=== PATIENT | male | born 1950 | race Caucasian/White ===

== ENCOUNTER → 2016-07-06 | Outpatient (CLI) | payer BC ==
[~2016-07-06] MED LIST: BACT800T5 PO; COLA100C PO; HYDR12.57 PO; IBUP800T23 PO; MIRA25TA PO; OXYB5TAB10 PO; OXYC1TAB63 PO; PERC10TA27 PO
[2016-07-06 10:39] LABS: BASOPHIL # 0.1 TH/MM3 (0-0.2); BASOPHIL % 1.1 % (0.0-2.0); EOSINOPHIL # 0.2 TH/MM3 (0-0.4); HEMATOCRIT 43.5 % (39.0-51.0); HEMO FLAGS DIFF FINAL; LYMPH % 20.2 % (9.0-44.0); MEAN CELL VOLUME 91.2 FL (80.0-100.0); MEAN CORPUSCULAR HEMOGLOBIN 31.4 PG (27.0-34.0); MEAN CORPUSCULAR HGB CONC 34.5 % (32.0-36.0); MONO % 11.3 % (0.0-8.0); NEUT % 62.4 % (16.0-70.0); PLATELET COUNT 246 TH/MM3 (150-450); RED BLOOD COUNT 4.77 MIL/MM3 (4.50-5.90); WHITE BLOOD COUNT 4.8 TH/MM3 (4.0-11.0)
[2016-07-06 10:51] LABS: APTT (PATIENT) 25.2 SEC (24.3-30.1); INTERNATIONAL NORMALIZED RATIO 0.9 RATIO; PROTHROMBIN TIME - PATIENT 10.4 SEC (9.8-11.6)
[2016-07-06 10:56] LABS: BACTERIA, URINE RARE /hpf; BLOOD, URINE NEG (NEG); COMMENT (UR) CULTURE INDICATED; CULTURE IF INDICATED CULTURE INDICATED; GLUCOSE,URINE NEG (NEG); KETONE, URINE NEG (NEG); MUCUS URINE FEW /lpf (OCC); SQUAMOUS EPITHELIAL CELL URINE <1 /hpf (0-5); URINE COLOR YELLOW (YELLW/STRAW)
[2016-07-06 10:57] LABS: NITRITE,URINE POS (NEG)
[2016-07-06 12:49] LABS: ANION GAP 6 MEQ/L (5-15); AST (GOT) 26 U/L (15-37); BICARBONATE 25.3 MEQ/L (21.0-32.0); BLOOD UREA NITROGEN 14 MG/DL (7-18); CHLORIDE 105 MEQ/L (98-107); GLOMERULAR FILTRATION RATE 87 ML/MIN (>89); GLUCOSE,FASTING 96 MG/DL (74-99); SODIUM (NA) 136 MEQ/L (136-145)
[2016-07-06 12:50] LABS: ALT (GPT) 37 U/L (12-78)
[2016-07-06 12:53] LABS: ALKALINE PHOSPHATASE 76 U/L (45-117); TOTAL BILIRUBIN ADULT 1.1 MG/DL (0.2-1.0)
--- NOTE | 2016-07-07 12:09 | EKG ---
Date Performed: 07/06/2016 Time Performed: 09:54:15 PTAGE: 65 years EKG: Sinus rhythm POSSIBLE RIGHT VENTRICULAR CONDUCTION DELAY BORDERLINE ECG Compared to prior tracing no significant change DOCTOR: Mauro Maher Interpretating Date/Time 07/07/2016 12:08:01
== END ==
LOC: CPRE 09:34
PROVIDERS: ATTEND Urology
DX: Z01.810 Encounter for preprocedural cardiovascular examination (principal); Z01.812 Encounter for preprocedural laboratory examination; N36.0 Urethral fistula; R94.31 Abnormal electrocardiogram [ECG] [EKG]; R82.90 Unspecified abnormal findings in urine
CPT/HCPCS: 36415; 80053; 81001; 85025; 85610; 85730; 87086; 93005

== ENCOUNTER 2016-07-12 05:49 | Inpatient (IN) | payer BC ==
[~2016-07-12] VITALS: Ht 188 cm; Wt 87.0 kg
[~2016-07-12 05:49] MED LIST changes: -BACT800T5 PO; -COLA100C PO; -MIRA25TA PO; -OXYC1TAB63 PO; -PERC10TA27 PO
[2016-07-12] MEDS ORDERED: AMPICILLIN 1 GM/NS 100 ML IV SCH ×2 (06:15)
[2016-07-12] MEDS ORDERED: INSULIN HUMAN REGULAR 1,000 UNITS/10 ML VIAL SQ PRN (06:30)
[2016-07-12] MEDS ORDERED: METOPROLOL TARTRATE 25 MG TAB PO PRN (06:30)
[2016-07-12] MEDS ORDERED: CHLORHEXIDINE GLUCONATE 2 % 1 PACK (2 CLOTHS) TOPICAL PRN (06:30)
[2016-07-12] MEDS ORDERED: SODIUM CHLORID 0.9% 500 ML IV PRN (06:30)
[2016-07-12] MEDS ORDERED: POVIDONE IODINE 5% (ANTISEPSIS KIT) 4 APPLICATIONS EACH NARE PRN (06:30)
[2016-07-12 06:43] VITALS: BP 126/91; PULSE 80; RESP 20; TEMP 98; O2SAT 93
[2016-07-12] MEDS: LACTATED RINGER'S 1000 ML IV PRN ×2 (06:50→19:45)
[2016-07-12] MEDS: GENTAMICIN INJ 240 MG in SODIUM CHLORIDE 0.9% INJ 100 ML IV SCH ×3 (07:01→20:52)
[2016-07-12] MEDS ORDERED: POVIDONE IODINE 10% OINT 30 GM TUBE ONE (07:07)
[2016-07-12] MEDS ORDERED: LIDOCAINE 1%/EPINEPHrine 1:100,000 SOLN 50 ML VIAL ONE ×2 (07:08→07:09)
[2016-07-12] MEDS ORDERED: fentaNYL CITRATE 250 MCG/5 ML AMP ONE ×3 (07:50→15:07)
[2016-07-12] MEDS ORDERED: ACETAMINOPHEN 1000 MG/100 ML VIAL IV ONE (07:50)
[2016-07-12] MEDS ORDERED: HYDROmorphone HCL PF 2 MG/ML VIAL ONE (07:51)
[2016-07-12] MEDS ORDERED: SUGAMMADEX SODIUM 200 MG/2 ML VIAL IV PUSH ONE ×2 (07:51)
[2016-07-12] MEDS ORDERED: AMPICILLIN 1 GM/NS 100 ML IV ONE ×4 (11:45→13:45)
[2016-07-12] MEDS ORDERED: PROPOFOL 200 MG/20 ML AMP IV ONE (11:49)
[2016-07-12] MEDS ORDERED: ONDANSETRON HCL 4 MG/2 ML VIAL IV PUSH ONE (11:50)
[2016-07-12] MEDS ORDERED: ePHEDrine/NS 25 MG/5 ML SYR IV ONE (11:50)
[2016-07-12] MEDS ORDERED: NORMOSOL R INJ 3,000 ML IV ONE (11:51)
[2016-07-12] MEDS ORDERED: SODIUM CHLORID 0.9% 500 ML INJ 500 ML IV ONE (11:51)
[2016-07-12] MEDS ORDERED: LACTATED RINGER'S 1000 ML INJ 1,000 ML IV ONE (11:51)
[2016-07-12] MEDS ORDERED: HYOSCYAMINE 0.125 MG TAB PO PRN (14:30)
[2016-07-12] MEDS ORDERED: AMPICILLIN 500 MG VIAL IV PUSH SCH (14:30)
[2016-07-12] MEDS ORDERED: ONDANSETRON HCL 4 MG/2 ML VIAL IV PUSH PRN (14:30)
--- NOTE | 2016-07-12 14:55 | PD.OP ---
Operative Report Date of Surgery: Jul 12, 2016 Preoperative Diagnosis: Rectourethral fistula Postoperative Diagnosis: Same Procedure: Repair and excision of rectourethral fistula; flexible cystoscopy; Collier catheter insertion over a wire Anesthesia: ANDRES Surgeon: Latrell Killian Furniture Upholstery Mechanic(s): Dr. 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 Patient had a diagnosis of rectal cancer who underwent APR in the past followed by external beam radiation therapy. A retrograde urethrogram was performed in the past as well as an MRI demonstrating a rectourethral fistula. He underwent cystoscopy and suprapubic tube placement in the past. He was admitted today to undergo repair as a rectourethral fistula. Risk and benefits were discussed including: Urinary incontinence, recurrence of fistula: Urethral stricture disease, infection. He was willing to proceed. Patient was brought to the operating identified myself as Neymar Rivas. He's placed in the exaggerated high lithotomy position, prepped and draped in usual sterile fashion , received preprocedure antibiotics, and general endotracheal tube anesthesia was admitted. All joints were appropriately padded. His perineum was blocked backward on a beanbag and a gel pad was placed. Sequential compression devices were placed on lower extremities. His perineum was shaved and prepped and draped in usual sterile fashion. An 18 Cypriot Collier catheter was inserted into the penis. A midline perineal incision was made using the 15 blade to just above the anal verge and beginning below the scrotum. Subcutaneous tissues were taken with the Bovie cautery down to the bulbospongiosus muscle. Chambers Retractor was then placed in position. Bulbospongiosus muscle was then grasped in the midline and split and exposed the underlying urethra. Retraction was deepened, and further dissection continued along the proximal urethra. Fibrosis and scarring was identified in this region approaching the area of the prostatic urethra. Using the tenotomy scissors, further dissection proceeded, and rectal tissue was identified. This was adherent to the right lateral aspect of the urethra and an enterotomy was made into the rectal tissue. Dissection continued along the lateral aspect of the urethra to separate the adherent rectal tissue from this area with a fistula was present. Once the rectum was freed from the wall of the urethra, a large defect in the urethra was identified on the right side. A little calcification was also identified and removed. The rectum was closed with interrupted 2-0 Vicryl sutures. A double layered closure was performed. Attention was then directed to the right lateral aspect of the urethral side. This defect was approximately 3 cm in length. It ran along the right lateral sidewall and then extended anteriorly. Decision was made to free up the entire urethra circumferentially. This was done with tenotomy scissors and a vessel loop was used to help with retraction. Once the entire urethra was free, this allowed better visualization of the defect on the right lateral urethra. Decision was made to attempt a primary closure of this region as placing a graft in this area would be very difficult. Interrupted 4-0 Vicryl sutures were used to close the defect in the urethra. The Collier catheter was then removed at this point and attempt was made to irrigate through the urethra leaving the Collier in at the distal aspect of the glans to observe for any leakage. Some leakage was noted along the anterior surface of the urethra and this was closed with interrupted 4-0 Vicryl sutures. Further testing demonstrating this to be watertight. Flexible cystoscopy was then performed and near the area of the bladder neck a suture was identified within the urethra. Using the scissors this suture was then cut, and the flexible cystoscope was passed into the bladder. A 0.35 sensor wire was passed through the scope into the bladder. A 18 Cypriot viejas tip catheter was passed over the wire leaving the Collier in good position. The 22 Cypriot suprapubic tube was also replaced at this time. With both tubes in good position, decision was then made to close. A 70 Cypriot fenestrated drain was left in the wound through a perineal incision. Running 2- 0 Vicryl sutures were then used to close the bulbospongiosus muscle as well as the dartos fascia in 2 running layers. The skin was then closed with ana rosa. The patient was then awoken and transferred to recovery room in stable condition. Latrell Killian DO Jul 12, 2016 14:55
[2016-07-12] MEDS ORDERED: MIDAZOLAM HCL 2 MG/2 ML VIAL ONE (15:07)
[2016-07-12] MEDS ORDERED: HYDROmorphone HCL PCA 6 MG/30 ML IV ONE (15:32)
[2016-07-12 15:37] LABS: HEMATOCRIT 38.6 % (39.0-51.0); MEAN CELL VOLUME 91.9 FL (80.0-100.0); MEAN CORPUSCULAR HEMOGLOBIN 31.5 PG (27.0-34.0); MEAN CORPUSCULAR HGB CONC 34.3 % (32.0-36.0); PLATELET COUNT 196 TH/MM3 (150-450); RED CELL DISTRIBUTION WIDTH 13.6 % (11.6-17.2); REVIEW FLAG FINAL; WHITE BLOOD COUNT 6.3 TH/MM3 (4.0-11.0)
[2016-07-12] MEDS: HYDROmorphone HCL PCA 6 MG/30 ML IV SCH (15:45)
[2016-07-12] MEDS: SODIUM CHLOR 0.45% 1000 ML INJ 1,000 ML IV SCH (15:54)
[2016-07-12 16:00] LABS: BICARBONATE 28.3 MEQ/L (21.0-32.0); POTASSIUM 3.9 MEQ/L (3.5-5.1)
[2016-07-12] MEDS ORDERED: DO NOT ADM ANY ANTICOAGULANT DRUGS PRN (16:15)
[2016-07-12] MEDS ORDERED: NALOXONE HCL 0.4 MG/ML AMP IV PRN (16:15)
[2016-07-12] MEDS ORDERED: diphenhydrAMINE HCL 50 MG/ML VIAL IV PUSH PRN (16:15)
[2016-07-12 20:00] VITALS: BP 121/74; PULSE 65; RESP 18; TEMP 96.7; O2SAT 95
[2016-07-12] MEDS: AMPICILLIN 500 MG/NS 50 ML IV SCH ×2 (21:16)
[2016-07-13] VITALS (8 sets, daily range): BP systolic 99–125; BP diastolic 57–72; PULSE 65–90; RESP 16–20; TEMP 96.9–100.6; O2SAT 93–97
[2016-07-13] MEDS: AMPICILLIN 500 MG/NS 50 ML IV SCH ×8 (02:38→20:11)
[2016-07-13] MEDS: PANTOPRAZOLE SODIUM 40 MG VIAL IV PUSH SCH ×3 (04:00→14:36)
[2016-07-13] MEDS: PCA - TOTAL MG DILAUDID DELIVERED PER SHIFT SCH ×3 (05:36→22:00)
[2016-07-13 05:57] LABS: HEMATOCRIT 36.9 % (39.0-51.0); MEAN CELL VOLUME 93.3 FL (80.0-100.0); MEAN CORPUSCULAR HEMOGLOBIN 30.9 PG (27.0-34.0); MEAN CORPUSCULAR HGB CONC 33.1 % (32.0-36.0); PLATELET COUNT 172 TH/MM3 (150-450); RED BLOOD COUNT 3.96 MIL/MM3 (4.50-5.90); RED CELL DISTRIBUTION WIDTH 13.9 % (11.6-17.2); REVIEW FLAG FINAL; WHITE BLOOD COUNT 7.1 TH/MM3 (4.0-11.0)
[2016-07-13 06:28] LABS: BICARBONATE 28.2 MEQ/L (21.0-32.0); POTASSIUM 3.8 MEQ/L (3.5-5.1)
[2016-07-13 06:41] LABS: CALCIUM-PROTEIN CORRECTED 8.1 MG/DL (8.5-10.1)
[2016-07-13] MEDS: HYDROCHLOROTHIAZIDE 12.5 MG CAP PO SCH (09:18)
[2016-07-13] MEDS: SODIUM CHLOR 0.45% 1000 ML INJ 1,000 ML IV SCH ×3 (09:19→14:36)
--- NOTE | 2016-07-13 10:26 | HHI.PR ---
Subjective Patient symptoms today Pt seen and examined. Feels well. Some pain but controlled. Objective Vital Signs Vital Signs Date Time Temp Pulse Resp B/P Pulse Ox O2 Delivery O2 Flow Rate FiO2 07/13/16 08:00 98.4 78 16 99/57 95 07/13/16 07:49 96 21 07/13/16 05:36 16 07/13/16 05:02 96.9 67 16 116/68 96 07/13/16 00:00 97.1 65 18 106/67 93 07/12/16 20:00 96.7 65 18 121/74 95 07/12/16 16:30 97.4 65 16 132/69 96 Nasal Cannula 2 07/12/16 16:15 63 14 111/57 95 07/12/16 16:00 62 12 110/60 96 07/12/16 15:45 64 12 117/62 97 07/12/16 15:45 12 07/12/16 15:30 60 12 129/68 97 07/12/16 15:15 57 12 132/74 98 Nasal Cannula 2 07/12/16 15:00 97.4 66 14 126/74 97 Nasal Cannula 2 Intake & Output 07/13/16 07/13/16 06:59 18:59 Intake Total 1754 ml Output Total 1700 ml 520 ml Balance 54 ml -520 ml Intake Oral 380 ml IV Total 1374 ml Output Urine Total 1050 ml 300 ml Stool Total 0 ml Drainage Total 650 ml 220 ml Result Diagram: 07/13/1643607/13/16436 Objective Remarks Abd:soft,nt,nd Dressing intact Collier and SP tube with clear urine ERIBERTO: blood tinged Ext: neg C/C/E Medications and IVs Current Medications Medications (Trade) Dose Ordered Sig/Enmanuel Route Start Time Stop Time Status Last Admin Lactated Ringer's 1,000 ml @ 30 mls/hr Q24H PRN IV 07/12/16 06:30 07/15/16 06:29 07/12/16 06:50 (NS 500 ml Inj) 500 ml @ 30 mls/hr [id number] PRN IV 07/12/16 06:30 07/15/16 06:29 (Zofran Inj) 4 mg Q6HR PRN IV PUSH 07/12/16 14:30 Acetaminophen 650 mg 650 mg Q6H PRN PO 07/12/16 14:30 (1/2 NS 1000 ml Inj) 1,000 ml @ 125 mls/hr Q8H IV 07/12/16 16:00 07/13/16 09:19 (Microzide) 12.5 mg DAILY PO 07/13/16 09:00 07/13/16 09:18 (Levsin) 0.25 mg Q4H PRN PO 07/12/16 14:30 Pantoprazole Sodium 40 mg 40 mg Q12H IV PUSH 07/12/16 16:00 07/13/16 05:37 (Ampicillin Inj/ NS Inj) 50 ml @ 200 mls/hr Q6H IV 07/12/16 20:00 07/13/16 09:19 (Dilaudid WHEEL MOLDER Inj) 6 mg UNSCH IV 07/12/16 16:15 07/12/16 15:45 WHEEL MOLDER Dosage Infused (Pha) 1 Q8HR .XX 07/12/16 22:00 07/13/16 05:36 (Narcan Inj) 0.4 mg UNSCH PRN IV 07/12/16 16:15 (Benadryl Inj) 25 mg Q6H PRN IV PUSH 07/12/16 16:15 Miscellaneous Information ALL NURSING DEPARTME... UNSCH PRN .XX 07/12/16 16:15 07/13/16 16:14 Assessment and Plan Assessment and Plan Stable POD#1 s/p repair of rectal urethral fistula Reg Diet OOB/Ambulate Latrell Killian DO Jul 13, 2016 10:26
[2016-07-13] MEDS: HYDROmorphone HCL PCA 6 MG/30 ML IV SCH (12:09)
[2016-07-13] MEDS: ACETAMINOPHEN 650 MG/20.3 ML UDC PO PRN (17:09)
[2016-07-14] VITALS (7 sets, daily range): BP systolic 106–135; BP diastolic 62–77; PULSE 64–88; RESP 14–20; TEMP 97.2–101.1; O2SAT 91–95
[2016-07-14] MEDS: SODIUM CHLOR 0.45% 1000 ML INJ 1,000 ML IV SCH ×4 (01:10→21:29)
[2016-07-14] MEDS: ACETAMINOPHEN 650 MG/20.3 ML UDC PO PRN (03:58)
[2016-07-14] MEDS: PANTOPRAZOLE SODIUM 40 MG VIAL IV PUSH SCH ×2 (03:59→17:25)
[2016-07-14] MEDS: AMPICILLIN 500 MG/NS 50 ML IV SCH ×6 (04:01→13:22)
[2016-07-14] MEDS: HYDROmorphone HCL PCA 6 MG/30 ML IV SCH (04:42)
[2016-07-14] MEDS: PCA - TOTAL MG DILAUDID DELIVERED PER SHIFT SCH (06:00)
[2016-07-14] MEDS: HYDROCHLOROTHIAZIDE 12.5 MG CAP PO SCH (09:22)
--- NOTE | 2016-07-14 09:59 | HHI.PR ---
Subjective Patient symptoms today Pt seen and examined. Feels well. Fever last PM to 101. Objective Vital Signs Vital Signs Date Time Temp Pulse Resp B/P Pulse Ox O2 Delivery O2 Flow Rate FiO2 07/14/16 08:00 98.0 68 14 106/62 91 07/14/16 06:19 17 07/14/16 06:00 17 07/14/16 04:42 16 07/14/16 04:00 101.1 88 20 126/71 93 07/14/16 00:00 100.2 78 20 127/75 95 07/13/16 22:00 16 07/13/16 20:05 95 21 07/13/16 20:00 99.6 82 20 103/67 93 07/13/16 16:00 100.6 87 16 112/69 97 07/13/16 14:00 18 07/13/16 12:09 18 07/13/16 12:00 99.7 90 18 125/72 93 Intake & Output 07/14/16 07/14/16 07:00 19:00 Intake Total 3591 ml Output Total 3510 ml Balance 81 ml Intake Oral 460 ml IV Total 3131 ml Output Urine Total 3450 ml Stool Total 0 ml Drainage Total 60 ml # Bowel Movements 0 Result Diagram: 07/13/1643607/13/16436 Objective Remarks Abd:soft,nt,nd Dressing intact Collier and SP tube with clear urine ERIBERTO: blood tinged Ext: neg C/C/E 07/14/16 Abd:soft,nt,nd Dressing intact Collier and SP tube with clear urine ERIBERTO: blood tinged Ext: neg C/C/E Medications and IVs Current Medications Medications (Trade) Dose Ordered Sig/Enmanuel Route Start Time Stop Time Status Last Admin Lactated Ringer's 1,000 ml @ 30 mls/hr Q24H PRN IV 07/12/16 06:30 07/15/16 06:29 07/12/16 06:50 (NS 500 ml Inj) 500 ml @ 30 mls/hr [id number] PRN IV 07/12/16 06:30 07/15/16 06:29 (Zofran Inj) 4 mg Q6HR PRN IV PUSH 07/12/16 14:30 Acetaminophen 650 mg 650 mg Q6H PRN PO 07/12/16 14:30 07/14/16 03:58 (1/2 NS 1000 ml Inj) 1,000 ml @ 125 mls/hr Q8H IV 07/12/16 16:00 07/14/16 09:23 (Microzide) 12.5 mg DAILY PO 07/13/16 09:00 07/14/16 09:22 (Levsin) 0.25 mg Q4H PRN PO 07/12/16 14:30 Pantoprazole Sodium 40 mg 40 mg Q12H IV PUSH 07/12/16 16:00 07/14/16 03:59 (Ampicillin Inj/ NS Inj) 50 ml @ 200 mls/hr Q6H IV 07/12/16 20:00 07/14/16 09:23 Diphenhydramine HCl 25 mg 25 mg Q6H PRN IV PUSH 07/12/16 16:15 (Vancomycin Inj/ NS 250 ml Inj) 250 ml @ 250 mls/hr Q12H IV 07/14/16 10:00 Assessment and Plan Assessment and Plan Stable POD#1 s/p repair of rectal urethral fistula Reg Diet OOB/Ambulate 07/14/16 Stable POD#2 s/p repair of rectal urethral fistula OOB/Ambulate Encourage I/S Vanco 1 gram IV Q 12 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
[2016-07-14] MEDS ORDERED: HYDROmorphone HCL PF 2 MG/ML VIAL IV PUSH PRN (10:00)
[2016-07-14] MEDS: VANCOMYCIN INJ 1,000 MG in SODIUM CHLOR 0.9% 250 ML INJ 250 ML IV SCH ×2 (10:20→21:27)
[2016-07-14] MEDS: oxyCODONE/ACETAMINOPHEN 10 MG/325 MG TAB PO PRN ×3 (13:24→21:51)
[2016-07-14] MEDS: AMPICILLIN IV SCH (21:27)
[2016-07-14] MEDS: SODIUM CHLORIDE 0.9% IV SCH (21:27)
[2016-07-15] VITALS: BP 131/84; PULSE 80; RESP 18; TEMP 97.8; O2SAT 94
[2016-07-15] MEDS: SODIUM CHLORIDE 0.9% IV SCH ×3 (01:02→14:21)
[2016-07-15] MEDS: AMPICILLIN IV SCH ×3 (01:02→14:21)
[2016-07-15] MEDS: PANTOPRAZOLE SODIUM 40 MG VIAL IV PUSH SCH (04:32)
[2016-07-15 08:00] VITALS: BP 142/88; PULSE 68; RESP 18; TEMP 97.2; O2SAT 94
[2016-07-15] MEDS: HYDROCHLOROTHIAZIDE 12.5 MG CAP PO SCH (08:35)
[2016-07-15] MEDS: SODIUM CHLOR 0.45% 1000 ML INJ 1,000 ML IV SCH ×2 (08:36)
[2016-07-15] MEDS: oxyCODONE/ACETAMINOPHEN 10 MG/325 MG TAB PO PRN (08:41)
[2016-07-15] MEDS: VANCOMYCIN INJ 1,000 MG in SODIUM CHLOR 0.9% 250 ML INJ 250 ML IV SCH (10:32)
--- NOTE | 2016-07-15 11:56 | HHI.FF ---
Face to Face Verification Diagnosis: (1) Urethrorectal fistula Home Health Nursing Order: Medical education Wound care and dressing changes Nursing assessment with vital signs Collier catheter maintenance Home Health Aide Order: To Assist In: Bathing and personal care I have seen patient Neymar Trujillo on 07/15/16. My clinical findings support the need for the requested home health care services because: Deconditioned w/ increased weakness Infection w/ risk of complications I certify that my clinical findings support that this patient is homebound because: Post-op weakness Unsteady gait/balance Latrell Killian DO Jul 15, 2016 11:56
--- NOTE | 2016-07-15 11:58 | HHI.PR ---
Subjective Patient symptoms today Pt feels well. Ready for discharge. No fever. Objective Vital Signs Vital Signs Date Time Temp Pulse Resp B/P Pulse Ox O2 Delivery O2 Flow Rate FiO2 07/15/16 08:00 97.2 68 18 142/88 94 07/15/16 00:00 97.8 80 18 131/84 94 07/14/16 20:00 97.2 67 18 109/70 92 07/14/16 16:00 98.5 78 16 128/77 91 07/14/16 12:00 98.5 64 18 135/76 95 Intake & Output 07/15/16 07/15/16 07:00 19:00 Intake Total 2067 ml Output Total 2755 ml Balance -688 ml Intake Oral 600 ml IV Total 1467 ml Output Urine Total 2075 ml Drainage Total 680 ml # Bowel Movements 0 Result Diagram: 07/13/1643607/13/16436 Objective Remarks Abd:soft,nt,nd Dressing intact Collier and SP tube with clear urine ERIBERTO: blood tinged Ext: neg C/C/E 07/14/16 Abd:soft,nt,nd Dressing intact Collier and SP tube with clear urine ERIBERTO: blood tinged Ext: neg C/C/E 07/15 Abd:soft,nt,nd Wound: clean and dry; ERIBERTO removed Collier and SP tube clear Medications and IVs Current Medications Medications (Trade) Dose Ordered Sig/Enmanuel Route Start Time Stop Time Status Last Admin (Zofran Inj) 4 mg Q6HR PRN IV PUSH 07/12/16 14:30 Acetaminophen 650 mg 650 mg Q6H PRN PO 07/12/16 14:30 07/14/16 03:58 (1/2 NS 1000 ml Inj) 1,000 ml @ 125 mls/hr Q8H IV 07/12/16 16:00 07/15/16 08:36 (Microzide) 12.5 mg DAILY PO 07/13/16 09:00 07/15/16 08:35 (Levsin) 0.25 mg Q4H PRN PO 07/12/16 14:30 (Protonix Inj) 40 mg Q12H IV PUSH 07/12/16 16:00 07/15/16 04:32 Diphenhydramine HCl 25 mg 25 mg Q6H PRN IV PUSH 07/12/16 16:15 (Vancomycin Inj/ NS 250 ml Inj) 250 ml @ 250 mls/hr Q12H IV 07/14/16 10:00 07/15/16 10:32 (Percocet 10-325 Mg) 1 tab Q4H PRN PO 07/14/16 10:00 07/15/16 08:41 Hydromorphone HCl 2 mg 2 mg Q4H PRN IV PUSH 07/14/16 10:00 (Ampicillin Inj/ NS Inj) 100 ml @ 200 mls/hr Q6H IV 07/14/16 20:00 07/15/16 08:35 Assessment and Plan Assessment and Plan Stable POD#1 s/p repair of rectal urethral fistula Reg Diet OOB/Ambulate 07/14/16 Stable POD#2 s/p repair of rectal urethral fistula OOB/Ambulate Encourage I/S Vanco 1 gram IV Q 12 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 Latrell Killian DO Jul 15, 2016 11:58
[2016-07-15 12:00] VITALS: BP 156/95; PULSE 65; RESP 16; TEMP 97.1; O2SAT 95
--- NOTE | 2016-07-15 12:02 | HHI.FF ---
Face to Face Verification Diagnosis: (1) Urethrorectal fistula Home Health Nursing Order: Signs/symptoms of disease process Wound care and dressing changes Collier catheter maintenance I have seen patient Neymar Trujillo on 07/15/16. My clinical findings support the need for the requested home health care services because: Daily Wound care with dressing changes Collier cath and SP tube care Infection w/ risk of complications I certify that my clinical findings support that this patient is homebound because: Post-op weakness Unsteady gait/balance Latrell Killian DO Jul 15, 2016 12:02
[2016-07-15] MEDS ORDERED: PERC10TA27 PO (12:42)
[2016-07-15] MEDS ORDERED: BACT800T5 PO (12:43)
[2016-07-15] MEDS ORDERED: OXYB5TAB10 PO (12:44)
[2016-07-15] MEDS ORDERED: COLA100C PO (12:45)
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
--- NOTE | 2016-07-27 07:24 | MD ---
cc: AMAN HENLEY ADMISSION DATE: 07/12/2016 DISCHARGE DATE: 07/15/2016 Mr. Trujillo is a 64-year-old male who has a history of urethral rectal fistula who underwent repair on 07/15/2016. He had an uneventful hospital course. On day one, he was tolerating clear liquids and his pain was controlled and he continued on IV antibiotics. Day two, his drain was removed as it was putting out minimal output and both the Collier and the suprapubic tube were draining clear urine and remained in good position. He was able to tolerate a regular diet on day three. On 07/15/2016, he was discharged. At the time of discharge, he was given instructions on diet, exercise and medications. He was scheduled for follow up in the office in one week to undergo staple removal. Aman STERN/DJL /9:46 AM /7:22 AM
[2016-08-08] MEDS ORDERED: OXYB5TAB10 PO (11:38)
[2016-08-08] MEDS ORDERED: OXYC1TAB63 PO (11:45)
== END 2016-07-15 16:03 | disposition home health service (06) | DRG 664 ==
LOC: HSDC 05:49 → HSDI 14:38 → N07B 16:42
PROVIDERS: ADMIT Urology; ATTEND Urology
PROC: 0DQP0ZZ Repair Rectum, Open Approach (ICD-10-PCS; 2016-07-12)
PROC: 0TJB8ZZ Inspection of Bladder, Via Natural or Artificial Opening Endoscopic (ICD-10-PCS; 2016-07-12)
PROC: 0TQD0ZZ Repair Urethra, Open Approach (ICD-10-PCS; principal; 2016-07-12 08:05)
DX: N36.0 Urethral fistula (principal); G62.9 Polyneuropathy, unspecified; I10 Essential (primary) hypertension; Z85.048 Personal history of other malignant neoplasm of rectum, rectosigmoid junction, and anus; F17.210 Nicotine dependence, cigarettes, uncomplicated
CPT/HCPCS: 36430; 80048; 84155; 85027; 86850; 86900; 86901; 86920; 94150; C1769; C9113; J0131; J0290; J1170; J1580; J2250; J2405; J3010; J3370; J7040; J7050; J7120; P9016

== ENCOUNTER → 2016-09-15 | Day surgery (SDC) | payer BC ==
[~2016-09-15] VITALS: Ht 188 cm; Wt 86.1 kg
[~2016-09-15] MED LIST changes: +ACETAMINOPHEN/HYDROcodone 325 MG/5 MG TAB PO PRN; +AMPICILLIN 1 GM/NS 100 ML IV SCH; +BACT800T5 PO; +CHLORHEXIDINE GLUCONATE 2 % 1 PACK (2 CLOTHS) TOPICAL PRN; +COLA100C PO; +DO NOT ADM ANY ANTICOAGULANT DRUGS PRN; +GENTAMICIN INJ 240 MG in SODIUM CHLORIDE 0.9% INJ 100 ML IV SCH; -IBUP800T23 PO; +INSULIN HUMAN REGULAR 1,000 UNITS/10 ML VIAL SQ PRN; +IOHEXOL 350 MG/ML 50 ML BTL (for RAD DIAG) ONE; +LACTATED RINGER'S 1000 ML IV PRN; +METOPROLOL TARTRATE 25 MG TAB PO PRN; +MIDAZOLAM HCL 2 MG/2 ML VIAL ONE; +MORPHINE SULFATE 4 MG/ML INJ IV PUSH PRN; +ONDANSETRON HCL 4 MG/2 ML VIAL IV PUSH PRN; +OXYC1TAB63 PO; +POVIDONE IODINE 5% (ANTISEPSIS KIT) 4 APPLICATIONS EACH NARE PRN; +PROPOFOL 200 MG/20 ML AMP IV ONE; +SODIUM CHLORID 0.9% 500 ML IV PRN
[2016-09-15 06:12] VITALS: BP 133/80; PULSE 80; RESP 18; TEMP 98.4; O2SAT 96
[2016-09-15 06:20] LABS: AUTOMATED NEUTROPHIL # 3.2 TH/MM3 (1.8-7.7); BASOPHIL # 0.1 TH/MM3 (0-0.2); BASOPHIL % 1.3 % (0.0-2.0); EOSINOPHIL # 0.3 TH/MM3 (0-0.4); EOSINOPHIL % 5.2 % (0.0-4.0); HEMATOCRIT 39.9 % (39.0-51.0); HEMO FLAGS DIFF FINAL; LYMPH % 22.3 % (9.0-44.0); LYMPHOCYTE # 1.2 TH/MM3 (1.0-4.8); MEAN CELL VOLUME 92.9 FL (80.0-100.0); MEAN CORPUSCULAR HEMOGLOBIN 31.9 PG (27.0-34.0); MEAN CORPUSCULAR HGB CONC 34.3 % (32.0-36.0); MONO % 12.4 % (0.0-8.0); NEUT % 58.8 % (16.0-70.0); PLATELET COUNT 240 TH/MM3 (150-450); RED BLOOD COUNT 4.29 MIL/MM3 (4.50-5.90); RED CELL DISTRIBUTION WIDTH 15.1 % (11.6-17.2); WHITE BLOOD COUNT 5.4 TH/MM3 (4.0-11.0)
--- NOTE | 2016-09-15 08:32 | PD.OP ---
Operative Report Date of Surgery: Sep 15, 2016 Preoperative Diagnosis: Rectal urethral fistula Postoperative Diagnosis: Same Procedure: Cystoscopy with retrograde urethrogram Anesthesia: Mac Surgeon: Latrell Killian Supervisor Hydrochloric Area(s): None Resident Surgeon: None Operation and Findings: 65-year-old male with history of rectal cancer status post APR followed by radiation therapy in the past. He then developed a rectourethral fistula. 1 07/12/16 patient underwent repair of rectourethral fistula with urethral closure and Collier catheter placement. Today he presented to the operating room room to undergo cystoscopy with retrograde urethrogram and possible catheter removal. Risk and benefits were discussed and he was willing to proceed. Patient was brought to the operating room identified by myself as Neymar Trujillo. He was placed on the operating room table in the supine position, received preprocedure antibiotics, was prepped and draped in usual sterile fashion and received Mac anesthesia. Flexible cystoscope was placed into the urethra after the Collier catheter was removed and the area of fistula was noted to be nonhealing. The tissue appeared to be avascular at the area of the repair. At this point, a 12 Moldovan Collier catheter was inserted into the fossa navicularis and retrograde urethrogram was performed. Contrast extravasation was noted at the area of the rectourethral fistula. Decision was then made to change of suprapubic tube to a 20 Moldovan Collier catheter and inserted a 16 Moldovan Collier into the urethra. He tolerated procedure well and will be transferred to her room stable condition. He will follow-up in the office tomorrow to have his Collier catheter removed. Latrell Killian DO Sep 15, 2016 08:32
[2016-09-15 10:20] VITALS: BP 124/78; PULSE 58; RESP 16; TEMP 97.6; O2SAT 97
== END | disposition home or self-care (01) ==
LOC: HSDC 05:17
PROVIDERS: ATTEND Urology
DX: N36.0 Urethral fistula (principal); I10 Essential (primary) hypertension; Z85.048 Personal history of other malignant neoplasm of rectum, rectosigmoid junction, and anus; Z92.3 Personal history of irradiation; Z01.818 Encounter for other preprocedural examination
CPT/HCPCS: 00800; 51610; 51705; 85025; J0290; J1580; J2250; J3010; J7120; Q9967